=== PATIENT | male | born 1940 | race Caucasian/White ===

== ENCOUNTER 2025-04-11 09:26 | Emergency (ER) | payer OTHER, SELFPAY ==
[2025-04-11] VITALS (21 sets, daily range): BP systolic 146–177; BP diastolic 68–80; PULSE 55–95; RESP 9–23; TEMP 36.8; O2SAT 94–99
--- NOTE | 2025-04-11 09:15 | RT.EKG_ITS ---
APPROVED REPORT Exam: Resting ECG Reason for Exam: dizziness Patient Location: E HR:65 bpm ECG Measurements Heart Rate 65 AXIS DE 169 P 65 QRSd 99 QRS 44 QT 393 T 12 QTc 397 Conclusion Sinus rhythm...normal P axis, V-rate 60- 99 Atrial premature complexes...SV complexes w/ short R-R intvls No Occlusion SC
--- NOTE | 2025-04-11 09:49 | W.ED.GENAD ---
Discharge Plan Disposition Patient Disposition: Home Condition: Stable Discharge Details Clinical Impression: Vertigo Primary Care Provider: Lita,Local ED Provider: Rogerio Dorsey Home Meds and New Rx's Prescriptions: New meclizine 25 mg tablet 25 mg PO QID PRNQty: 30 0RF Continued COZAAR 50 MG tablet 50 mg PO DAILY TENORMIN 25 MG tablet 25 mg PO DAILY ZOCOR 80 MG tablet 80 mg PO DAILY multivitamin with minerals [Multiple Vitamin-Minerals] 1 EACH tablet 1 tab PO DAILY aspirin [Aspir-81] 81 MG tablet,delayed release (DR/EC) 81 mg PO nitroglycerin [Nitrostat] 0.4 MG tablet, sublingual 0.4 mg Sublingual ciprofloxacin HCl 500 MG tablet 500 mg PO BID Qty: 9 0RF Rx Instructions: avoid consumption of dairy or antacids within 4 hours of taking cipro Discharge Instructions Instructions: Meclizine, Vertigo ED Additional Instructions: You were seen in the emergency department for your vertigo 4 weeks, it seems to be positional in nature and intermittent. 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 Stand Alone Forms: Physical Therapy Referral Referrals: [facility] [Provider Group] HPI General Date/Time Provider Initiated Documentation: 04/11/25 09:33. 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 Quality described as vertigo, worse with certain movements and looking around, no radiation to numbness/weakness, tingling, slurred speech, neck stiffness, fever, vomiting, LOC, abdominal pain, bowel/urinary changes. Severity is described as severe. Palliating factors include nothing specific attempted. Provoking factors include nothing specific. Patient not anticoagulated. Related Data Home Medications ?Medication ?Instructions ?Recorded ?Confirmed Cozaar 50 mg PO DAILY 10/22/08 04/05/16 Tenormin 25 mg PO DAILY 10/22/08 04/05/16 Zocor 80 mg PO DAILY 10/22/08 04/05/16 multivitamin with minerals 1 tab PO DAILY 08/06/13 04/05/16 (Multiple Vitamin-Minerals tablet) aspirin 81 mg tablet,delayed 81 mg PO 04/05/16 release (Aspir-) nitroglycerin 0.4 mg sublingual 0.4 mg sublingual 04/05/16 tablet (Nitrostat) ciprofloxacin HCl 500 mg tablet 500 mg PO BID infectious diarrhea 04/07/16 #9 tabs meclizine 25 mg tablet 25 mg PO QID PRN #30 tabs 04/11/25 Previous Rx's ?Medication ?Instructions ?Recorded ciprofloxacin HCl 500 mg tablet 500 mg PO BID infectious diarrhea 04/07/16 #9 tabs meclizine 25 mg tablet 25 mg PO QID PRN #30 tabs 04/11/25 Allergies Allergy/AdvReac Type Severity Reaction Status Date / Time No Known Allergies Allergy Unverified 04/11/25 09:33 General Stated Complaint: Dizzy/Sync MAGDALENO: 3 Review of Systems All systems reviewed & are unremarkable except as noted in HPI and below Exam Narrative Exam Narrative: GENERAL APPEARANCE: Well-nourished, non-toxic, awake and alert, atraumatic, no acute distress. SKIN: Warm, pink, dry, intact, without rashes/lesions/ulcerations. HEAD: Normocephalic, atraumatic, normal hair distribution for gender/age. EYES: Normal conjunctiva, no exudates on lids/lashes. ENT: Nares patent, no circumoral cyanosis, no facial swelling NECK: Supple, trachea midline, painless cervical ROM. LUNGS/CHEST: Lungs CTA bilaterally, non-labored respirations, normal A/P diameter, symmetrical expansion, no chest wall deformity HEART (CV/PV): Irregular rate and rhythm likely sinus arrhythmia, without murmur, no peripheral edema, no JVD, 1/6 carotid bruit bilaterally ABDOMEN: Soft, non-distended, no guarding, no tenderness. MSK: Normal ROM, no swelling/deformity to bilateral UEs or LEs, moving all extremities without weakness, no cyanosis, spine midline without tenderness, normal curvature. NEURO: Mental Status AAOx4 - alert to person, place, time, events No facial droop, no forehead involvement, FNF WNL Motor: No focal weakness - strength 5/5 in bilateral UEs and LEs, proximal and distal, symmetric. Sensory: sensation intact to light touch globally. Gait normal: patient ambulated without ataxia into ED room. PSYCH: euthymic, cooperative, pleasant, appropriate speech Course Vital Signs Vital signs: Vital Signs Temperature 36.8 C 04/11/25 09:27 Pulse 78 04/11/25 09:27 Respiratory Rate 17 04/11/25 09:27 Blood Pressure 177/78 H 04/11/25 09:27 Pulse Oximetry 98 04/11/25 09:27 Temperature 36.8 C 04/11/25 09:27 Temperature Source Oral 04/11/25 09:27 Pulse 78 04/11/25 09:27 Respiratory Rate 17 04/11/25 09:27 Blood Pressure 177/78 H 04/11/25 09:27 Blood Pressure Position Supine 04/11/25 09:27 Pulse Oximetry 98 04/11/25 09:27 Oxygen Delivery Method Room Air 04/11/25 09:27 Oxygen Flow Rate 0 04/11/25 09:27 Pain Level 0 04/11/25 09:27 Medical Decision Making This dictation utilizes [id number] dictation software and may contain unedited grammatical errors. 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 Quality described as vertigo, worse with certain movements and looking around, no radiation to numbness/weakness, tingling, slurred speech, neck stiffness, fever, vomiting, LOC, abdominal pain, bowel/urinary changes. Severity is described as severe. Palliating factors include nothing specific attempted. Provoking factors include nothing specific. Patients' medical history: Hyperlipidemia, hypertension, history of Campylobacter gastroenteritis. Family and social history: Noncontributory likes to stay active, eats normal diet, no excessive EtOH intake. Pertinent exam findings / vital signs include normal neuroexam, no cerebellar signs, benign cardiopulmonary exam with some abbherent beats, benign abdomen, vital stable, nontoxic and afebrile. Differential / pathologies of concern include peripheral vertigo, vertebral dissection, carotid stenosis. Diagnostic studies of: - CBC, CMP, magnesium, TSH, CT brain and neck, EKG. - CBC completely benign - CMP benign - Magnesium negative - TSH within normal limits - CTA of the head head and neck shows no acute abnormality -EKG shows sinus rhythm at 65 bpm with normal axis, no acute ST changes, no T wave abnormalities, some inverted P waves nonspecific Interventions of: -Trial of meclizine, referral to [facility] Neurology/physical therapy. ED Course/Assessment/Plan: 84-year-old male is having weeks of positional vertigo, reproducible here with certain movements, hints exam negative for central causes, CTA of the brain and neck shows no vascular abnormality, no stroke or large vessel occlusion or dissection. His laboratory workup is reassuring, patient has had vertigo in the past that resolved, he is also had Paicines Clemente on the left side of his head which caused some dizziness issues, he is found relief with meclizine in the past but not associated with his Amparo Clemente syndrome episode. I am prescribing him meclizine and recommend he follow-up with vestibular rehab and physical therapy as well as referral to [facility] neurology for possible need for MRI and further evaluation, strict return criteria for any persistent vertigo especially with other neurologic changes like balance issues, drifting to 1 side while walking, unilateral numbness or weakness, slurred speech or other altered mentation. Findings not consistent with vertebral dissection, meningismus, stroke, central cause of vertigo. Disposition of Vertigo. Patient verbalized understanding of the plan and return to ED criteria and engaged in shared decision making. Medical Records Medical records reviewed: Yes I reviewed the patient's medical records. Imaging Data Radiologic Study: Attestation: I personally reviewed and interpreted this imaging study as follows: Imaging: CT Scan Radiologist's impression: EXAM: CT BRAIN NECK CTA CLINICAL HISTORY: dizziness, weeks onset. TECHNIQUE: Imaging Protocol: Axial CT angiography was performed with multi-slice acquisition and multi-planar and/or 3D reconstructions. CONTRAST MATERIAL: Intravenous: Omnipaque 350 contrast volume:70 mL COMPARISON: No exams were available for comparison FINDINGS: CT Head W/O and W: Ventricles and Extra axial spaces: Normal in size and morphology for the patient's age. Hemorrhage: None. Cerebral parenchyma: There are areas of decreased attenuation in the white matter most consistent with chronic microvascular ischemic disease. No acute territorial infarct or mass effect is present. Midline shift: None. Brainstem/Cerebellum: Normal. Calvarium: Normal. Visualized Paranasal sinuses/Mastoids: Mild paranasal sinus disease. Soft Tissues: Unremarkable. Enhancement: Unremarkable. CTA Neck W: Common Carotid: Right: No dissection, occlusion or significant stenosis. Mild atherosclerotic calcification. Left: No dissection, occlusion or significant stenosis. Mild atherosclerotic calcification. External Carotid: Right: No occlusion or significant stenosis. Left: No occlusion or significant stenosis. Internal Carotid: Right: No dissection, occlusion or significant stenosis. Atherosclerotic calcification is present. Left: No dissection, occlusion or significant stenosis. Atherosclerotic calcification is present. Vertebral Artery: Atherosclerotic calcification is present bilaterally. Right: No dissection, occlusion or significant stenosis. Left: No dissection, occlusion or significant stenosis. Lung Apices: Normal. Bones: Within normal limits for the patient's age. Soft Tissues: Normal. Thyroid gland: Unremarkable. CTA Brain W: Internal Carotid Arteries: Atherosclerotic calcification is present bilaterally. No aneurysm, occlusion or significant stenosis. Anterior Cerebral Arteries: Right: No aneurysm, occlusion or significant stenosis. Left: No aneurysm, occlusion or significant stenosis. Middle Cerebral Arteries: Right: No aneurysm, occlusion or significant stenosis. Left: No aneurysm, occlusion or significant stenosis. Posterior Cerebral Arteries: Right: No aneurysm, occlusion or significant stenosis. Left: No aneurysm, occlusion or significant stenosis. Vertebral Arteries: Right: No aneurysm, occlusion or significant stenosis. Left: No aneurysm, occlusion or significant stenosis. Basilar Artery: No aneurysm, occlusion or significant stenosis. IMPRESSION: 1. No large vessel occlusion or significant stenosis on the CT angiography of the head. 2. No acute intracranial process. 3. No occlusion or significant stenosis on the CT angiography of the neck. Lab Data Labs: Laboratory Tests Range/Units 04/11/25 09:55 WBC (4.4-10.8) 10^3/uL 4.39 L RBC (4.36-5.78) 10^6/uL 5.11 Hgb (13.5-17.5) g/dL 15.4 Hct (40.0-50.0) % 45.9 MCV (80-95) fL 90 MCH (27.0-33.0) pg 30.1 MCHC (32.0-36.0) % 33.6 RDW (11.8-14.1) % 14.9 H Plt Count (130-400) 10^3/uL 178 MPV (8.0-11.0) fL 11.3 H Immature Gran % % 0.5 Neutrophils % % 57.1 Lymphocytes % % 26.4 Monocytes % % 13.2 Eosinophils % % 2.1 Basophils % % 0.7 Nucleated RBC % (0.0-0.3) % 0.0 Absolute Neutrophils (1.2-6.7) 10^3/uL 2.51 Absolute Lymphocytes (1.2-3.4) 10^3/uL 1.16 L Absolute Monocytes (0.1-0.8) 10^3/uL 0.58 Absolute Eosinophils (0.0-0.7) 10^3/uL 0.09 Absolute Basophils (0.0-0.2) 10^3/uL 0.03 Sodium (136-145) mmol/L 142 Potassium (3.5-5.1) mmol/L 3.7 Chloride (98-107) mmol/L 106 Carbon Dioxide (21.0-32.0) mmol/L 28.6 Anion Gap (3-11) mmol/L 7.4 BUN (7-18) mg/dL 15 Creatinine (0.70-1.30) mg/dL 0.9 Est GFR (CKD-EPI 2020) (mL/min/1.73m2) 84.74 Glucose (74-106) mg/dL 105 Calcium (8.5-10.1) mg/dL 8.9 Magnesium (1.8-2.4) mg/dL 1.9 Total Bilirubin (0.2-1.0) mg/dL 0.7 AST (15-37) U/L 23 ALT (16-63) U/L 27 Alkaline Phosphatase (46-116) U/L 103 Total Protein (6.4-8.2) g/dL 6.7 Albumin (3.4-5.0) g/dL 3.5 TSH (0.36-3.74) uIU/mL 1.65 PFSH All Active Problems (Updated 04/11/25 @ 12:38 by KIARA Nichole) Vertigo (Acute) Campylobacter diarrhea (Acute) Gastroenteritis (Acute) Medical History (Updated 04/11/25 @ 12:38 by KIARA Nichole) Polyp of colon Hyperlipidemia Coronary arteriosclerosis Male erectile disorder Essential hypertension Surgical History Gustavo Fundoplication Colonoscopy - IV Sedation x2 Family History Mother No problems noted. Father No problems noted. Social History Smoking/Tobacco Use Status: Never Smoking risk assessment performed?: Yes Alcohol Intake: current Alcohol Intake frequency: 0-2 drinks per day Alcohol type: hard liquor Drug use: Never Substance use type: does not use Housing: house [facility] Have you Been Recently Intoxicated or Drunk Within the Last 30 days?: No Have you Ever Experienced Previous Episodes of Alcohol Withdrawal?: No Have you ever Experienced Withdrawal Seizures?: No Have you ever Experienced Delirium Tremens(DT)s?: No Have you ever undergone Alcohol Rehabilitation Treatment (i.e, inpt ot outpatient treatment programs)?: No Have you ever Experienced Blackouts?: No Have you ever Combined Alcohol with other Downers within the last 90 days?: No Have you ever Combined Alcohol with any other Substance of Abuse during the last 90 days?: No Result: 0
--- NOTE | 2025-04-11 10:00 | DI.CT_ITS ---
Exam(s) CT BRAIN NECK CTA EXAM: CT BRAIN NECK CTA CLINICAL HISTORY: dizziness, weeks onset. TECHNIQUE: Imaging Protocol: Axial CT angiography was performed with multi- slice acquisition and multi-planar and/or 3D reconstructions. CONTRAST MATERIAL: Intravenous: Omnipaque 350 contrast volume:70 mL COMPARISON: No exams were available for comparison FINDINGS: CT Head W/O and W: Ventricles and Extra axial spaces: Normal in size and morphology for the patient's age. Hemorrhage: None. Cerebral parenchyma: There are areas of decreased attenuation in the white matter most consistent with chronic microvascular ischemic disease. No acute territorial infarct or mass effect is present. Midline shift: None. Brainstem/Cerebellum: Normal. Calvarium: Normal. Visualized Paranasal sinuses/Mastoids: Mild paranasal sinus disease. Soft Tissues: Unremarkable. Enhancement: Unremarkable. CTA Neck W: Common Carotid: Right: No dissection, occlusion or significant stenosis. Mild atherosclerotic calcification. Left: No dissection, occlusion or significant stenosis. Mild atherosclerotic calcification. External Carotid: Right: No occlusion or significant stenosis. Left: No occlusion or significant stenosis. Internal Carotid: Right: No dissection, occlusion or significant stenosis. Atherosclerotic calcification is present. Left: No dissection, occlusion or significant stenosis. Atherosclerotic calcification is present. Vertebral Artery: Atherosclerotic calcification is present bilaterally. Right: No dissection, occlusion or significant stenosis. Left: No dissection, occlusion or significant stenosis. Lung Apices: Normal. Bones: Within normal limits for the patient's age. Soft Tissues: Normal. Thyroid gland: Unremarkable. CTA Brain W: Internal Carotid Arteries: Atherosclerotic calcification is present bilaterally. No aneurysm, occlusion or significant stenosis. Anterior Cerebral Arteries: Right: No aneurysm, occlusion or significant stenosis. Left: No aneurysm, occlusion or significant stenosis. Middle Cerebral Arteries: Right: No aneurysm, occlusion or significant stenosis. Left: No aneurysm, occlusion or significant stenosis. Posterior Cerebral Arteries: Right: No aneurysm, occlusion or significant stenosis. Left: No aneurysm, occlusion or significant stenosis. Vertebral Arteries: Right: No aneurysm, occlusion or significant stenosis. Left: No aneurysm, occlusion or significant stenosis. Basilar Artery: No aneurysm, occlusion or significant stenosis. IMPRESSION: 1. No large vessel occlusion or significant stenosis on the CT angiography of the head. 2. No acute intracranial process. 3. No occlusion or significant stenosis on the CT angiography of the neck. RADIATION DOSE DELIVERED: 2,132.7mGy.cm Total DLP DATA REPOSITORY: All CT scans at this facility are submitted to the National Radiology Data Registry (NRDR) Dose Index Registry (DIR) with the [employer] (A[employer]). RADIATION OPTIMIZATION: All CT scans at this facility use at least one of these dose optimization techniques: automated exposure control; mA and/or kV adjustment per patient size (includes targeted exams where dose is matched to clinical indication); or iterative reconstruction.
[2025-04-11 10:10] LABS: Abs Immature Grans 0.02 10^3/uL (0.0-0.06); Absolute Basophil Count 0.03 10^3/uL (0.0-0.2); Absolute Eosinophil Count 0.09 10^3/uL (0.0-0.7); Absolute Lymphocyte Count 1.16 10^3/uL (1.2-3.4); Absolute Monocyte Count 0.58 10^3/uL (0.1-0.8); Absolute Neutrophil Count 2.51 10^3/uL (1.2-6.7); Basophils % 0.7 %; Eosinophils % 2.1 %; HCT 45.9 % (40.0-50.0); HGB 15.4 g/dL (13.5-17.5); Immature Grans % 0.5 %; Lymphocytes % 26.4 %; MCH 30.1 pg (27.0-33.0); MCHC 33.6 % (32.0-36.0); MCV 90 fL (80-95); MPV 11.3 fL (8.0-11.0); Monocytes % 13.2 %; Neutrophils % 57.1 %; Platelet Count 178 10^3/uL (130-400); RBC 5.11 10^6/uL (4.36-5.78); RDW 14.9 % (11.8-14.1); RDW-SD 49.6 fL; WBC 4.39 10^3/uL (4.4-10.8)
[2025-04-11 10:21] LABS: ALT 27 U/L (16-63); AST 23 U/L (15-37); Albumin 3.5 g/dL (3.4-5.0); Alkaline Phosphatase 103 U/L (46-116); Anion Gap 7.4 mmol/L (3-11); BUN 15 mg/dL (7-18); Bilirubin, Total 0.7 mg/dL (0.2-1.0); CO2 28.6 mmol/L (21.0-32.0); CREATININE 0.9 mg/dL (0.70-1.30); Calcium 8.9 mg/dL (8.5-10.1); Chloride 106 mmol/L (98-107); Estimated GFR 84.74 (mL/min/1.73m2); Glucose 105 mg/dL (74-106); Potassium 3.7 mmol/L (3.5-5.1); Sodium 142 mmol/L (136-145); Total Protein 6.7 g/dL (6.4-8.2)
[2025-04-11 10:31] LABS: Magnesium 1.9 mg/dL (1.8-2.4); TSH (W/Ref FT4) 1.65 uIU/mL (0.36-3.74)
[2025-04-11] MEDS: Normal Saline - Diluent 50 ML VIAL IJ (10:43)
[2025-04-11] MEDS: Omnipaque 350 MG/ML 100 ML BTL 70 ML IJ (10:43)
[2025-04-12 10:32] LABS: Lyme Ab w Rflx to Lyme Confirm Negative (Negative)
[2025-04-14 09:18] LABS: Anaplasma phagocytophilum Negative (Negative); B. miyamotoi PCR Negative (Negative); Babesia divergens/MO-1 Negative (Negative); Babesia duncani Negative (Negative); Babesia microti Negative (Negative); Ehrlichia chaffeensis Negative (Negative); Ehrlichia ewingii/canis Negative (Negative); Ehrlichia muris eauclairensis Negative (Negative)
== END 2025-04-11 12:56 | disposition home or self-care (01) ==
PROVIDERS: Emergency Provider Physician Assistant
DX: R42 Dizziness and giddiness (principal); I10 Essential (primary) hypertension; E78.5 Hyperlipidemia, unspecified; Z79.82 Long term (current) use of aspirin
CPT/HCPCS: 70496; 70498; 80053; 87798; 93005; 99285; 83735; 84443; 85025; 86618; 93010; 99284; J3490

== ENCOUNTER → 2025-05-03 14:27 | Outpatient (BNVA) | payer MEDICARE, SELFPAY | PROVIDERS: Visit Provider Psychiatry & Neurology Neurology | DX: H81.11 Benign paroxysmal vertigo, right ear (principal); R01.1 Cardiac murmur, unspecified; I49.9 Cardiac arrhythmia, unspecified | CPT/HCPCS: 99215 ==